=== PATIENT | female | born 2000 | race Caucasian/White ===

== ENCOUNTER 2021-10-16 16:52 | Inpatient (IN) ==
[2021-10-16 17:23] LABS: Bilirubin,Urine Negative (Negative); Blood,Urine Negative (Negative); Clarity,Urine Clear (Clear); Color,Urine Colorless (Yellow); Glucose,Urine (UA) Normal (Normal); Ketones,Urine Negative (Negative); Leukocyte Esterase,Urine Negative (Negative); Nitrite,Urine Negative (Negative); PH,Urine 6.5 pH Units (5.0-8.0); Protein,Urine Negative (Neg-Trace); Specific Gravity,Urine 1.005 (1.010-1.025); Urobilinogen,Urine Normal (Normal)
[2021-10-16 17:27] LABS: Amphetamine Screen,Urine Negative ng/mL (Cutoff=1000); Barbiturate Screen,Urine Negative ng/mL (Cutoff=200); Benzodiazepines Screen,Urine Negative ng/mL (Cutoff=200); Cannabinoid Screen,Urine Negative ng/mL (Cutoff = 50); Cocaine Screen,Urine Negative ng/mL (Cutoff= 300); Opiate Screen,Urine Negative ng/mL (Cutoff=300); Phencyclidine Screen,Urine Negative ng/mL (Cutoff=25)
[2021-10-16] MEDS ORDERED: 0.9 % Sodium Chloride 1,000 ML IVC ONE (17:36)
[2021-10-16 17:39] LABS: Basophils # 0.1 K/mcL (0.0-0.2); Basophils % 0.5 %; Eosinophils # 0.3 K/mcL (0.0-0.6); Eosinophils % 2.7 %; Immature Granulocytes % 0.6 % (0-4); Lymphocytes # 2.7 K/mcL (0.6-4.6); Lymphocytes % 25.6 %; Mean Corpuscular HGB Conc 34.1 g/dL (31.6-35.5); Mean Corpuscular Volume 85.1 fL (83.0-100.0); Mean Platelet Volume 9.6 fL (9.4-12.4); Monocytes # 0.7 K/mcL (0.0-1.3); Monocytes % 6.4 %; Neutrophils # 6.8 K/mcL (1.6-8.9); Platelet Count 280 K/mcL (140-400); Red Blood Count 4.82 M/mcL (3.82-4.97); Red Cell Distribution Width 12.5 % (11.5-14.5); Segmented Neutrophils % 64.2 %; White Blood Count 10.6 K/mcL (4.3-11.1)
[2021-10-16 17:53] LABS: Acetaminophen < 10 mcg/mL (10-20); BUN/Creatinine Ratio 17 (6-26); Blood Urea Nitrogen 13 mg/dL (6-20); Calcium 9.1 mg/dL (8.6-10.3); Carbon Dioxide 21 mEq/L (23-29); Chloride 106 mEq/L (98-107); Chol/HDL Ratio 5.1 (0-4.9); Cholesterol 169 mg/dL (< 200); Ethanol < 10 mg/dL (Less than 10); Glucose 92 mg/dL (70-105); HDL Cholesterol 33 mg/dL (40-59); LDL Cholesterol,Calculated 94 mg/dL (< 100); Osmolality,Calculated 280 (280-300); Potassium 3.9 mEq/L (3.5-5.1); Salicylate < 2.5 mg/dL (15.0-30.0); Sodium 135 mEq/L (136-145); Triglycerides 210 mg/dL (< 150)
[2021-10-16 17:56] LABS: Albumin 4.3 g/dL (3.5-5.7); Albumin/Globulin Ratio 1.4 (1.1-2.2); Bilirubin,Direct 0.1 mg/dL (0.0-0.2); Bilirubin,Indirect 0.2 mg/dL (0.0-1.0); Bilirubin,Total 0.3 mg/dL (0.3-1.0); Globulin 3.1 g/dL (2.4-3.5); Magnesium 2.1 mg/dL (1.6-2.6); Total Protein 7.4 g/dL (6.4-8.9)
[2021-10-16 18:07] LABS: Thyroid Stimulating Hormone 1.197 mcIU/mL (0.340-5.600)
[2021-10-16 18:32] LABS: Estimated Average Glucose 91 mg/dl; Hemoglobin A1C 4.8 %
[2021-10-16 21:52] LABS: Influenza A PCR Negative (Negative); Influenza B PCR Negative (Negative); Resp. Syncytial Virus PCR Negative (Negative)
[2021-10-16 22:21] LABS: SARS-CoV-2 by PCR (In House) Negative (Negative)
[2021-10-17] MEDS ORDERED: Ibuprofen 400 MG TABLET PO PRN (02:23)
[2021-10-17] MEDS ORDERED: QUEtiapine Fumarate 25 MG TABLET PO PRN (02:23)
[2021-10-17] MEDS ORDERED: *HR* LORazepam 1 MG TABLET PO PRN (02:23)
[2021-10-17] MEDS ORDERED: haloperidoL 5 MG TABLET PO PRN (02:23)
[2021-10-17] MEDS ORDERED: Haloperidol Lactate 5 MG/ML VIAL IM PRN (02:23)
[2021-10-17] MEDS ORDERED: *HR* LORazepam 2 MG/ML VIAL IM PRN (02:23)
[2021-10-17] MEDS ORDERED: Mag Hydrox/Al Hydrox/Simeth 30 ML UDC PO PRN (10:43)
[2021-10-17] MEDS ORDERED: MOM Conc 10 ML UD.LIQ PO PRN (10:43)
[2021-10-17] MEDS ORDERED: hydrOXYzine pamoate 25 MG CAPSULE PO PRN (10:53)
[2021-10-19 09:57] VITALS: BP 127/83; PULSE 84; TEMP 97.8; O2SAT 98
== END 2021-10-19 15:20 | disposition home or self-care (01) | DRG 885 ==
LOC: EMEROOARM 16:52 → 1ANU 10-17 02:18
PROVIDERS: ADMIT Psychiatry & Neurology Psychiatry; ATTEND Psychiatry & Neurology Psychiatry